=== PATIENT | female | born 1970 | race Caucasian/White ===

== ENCOUNTER → 2022-02-07 | Outpatient (REF) | payer OTHER ==
[2022-02-07 19:29] LABS: FREE T4 0.94 NG/DL (0.76-1.46); THYROID STIMULATING HORMONE 5.14 uIU/ML (0.358-3.740)
== END ==
LOC: M SFHCADAM 11:59
PROVIDERS: ATTEND Family Medicine
DX: L30.9 Dermatitis, unspecified (principal)

== ENCOUNTER → 2022-03-22 | Outpatient (CLI) | payer OTHER ==
[2022-03-22 16:36] LABS: BASO % 0.8 % (0.0-1.0); EOS % 0.8 % (0.0-3.0); HEMATOCRIT 40.1 % (36.0-47.0); HEMOGLOBIN 13.8 g/dl (12.0-15.5); LYMPH # 1.7 10^3/uL (1.5-5.0); LYMPH % 34.1 % (24.0-44.0); MEAN CORPUSCULAR HEMOGLOBIN 32.4 pg (27.0-33.0); MEAN CORPUSCULAR HGB CONC 34.4 g/dl (32.0-36.5); MEAN CORPUSCULAR VOLUME 94.1 fl (80.0-96.0); MONO # 0.4 10^3/uL (0.0-0.8); MONO % 7.1 % (2.0-8.0); NEUTROPHILS # 2.8 10^3/uL (1.5-8.5); PLATELET COUNT, AUTOMATED 261 10^3/uL (150-450); RED BLOOD COUNT 4.26 10^6/uL (4.00-5.40); WHITE BLOOD COUNT 4.9 10^3/uL (4.0-10.0)
[2022-03-22 16:58] LABS: HEMOGLOBIN A1c 5.2 %
[2022-03-22 17:20] LABS: ALBUMIN 4.2 GM/DL (3.2-5.2); ALT/SGPT 24 U/L (12-78); BILIRUBIN,TOTAL 1.4 MG/DL (0.2-1.0); BLOOD UREA NITROGEN 13 MG/DL (7-18); CALCIUM LEVEL 9.6 MG/DL (8.5-10.1); CARBON DIOXIDE LEVEL 29 MEQ/L (21-32); CHLORIDE LEVEL 106 MEQ/L (98-107); CHOLESTEROL LEVEL 186 MG/DL (<200); CREATININE FOR GFR 1.01 MG/DL (0.55-1.30); FREE T3 2.9 PG/ML (2.2-4.0); FREE T4 0.88 NG/DL (0.76-1.46); GLOMERULAR FILTRATION RATE > 60.0 (>51); GLUCOSE, FASTING 84 MG/DL (70-100); HDL CHOLESTEROL 62 MG/DL (>40); LDL CHOLESTEROL 109 MG/DL (<100); MAGNESIUM LEVEL 2.2 MG/DL (1.8-2.4); NON-HDL-C 124 MG/DL; POTASSIUM SERUM 3.9 MEQ/L (3.5-5.1); SODIUM LEVEL 142 MEQ/L (136-145); THYROGLOBULIN ANTIBODY < 15.0 U/ML (<60.0); THYROXINE (T4) 7.9 UG/DL (4.5-12.0); TOTAL 25(OH) VITAMIN D 35.6 NG/ML (30.0-100.0); TOTAL PROTEIN 7.9 GM/DL (6.4-8.2); TOTAL T3 95.4 NG/DL (60.0-181.0); TRIGLYCERIDES LEVEL 77 MG/DL (<150)
[2022-03-22 17:25] LABS: THYROID PEROXIDASE ANTIBODY 41.8 U/ML (<60.0)
[2022-03-22 17:39] LABS: ERYTHROCYTE SEDIMENTATION RATE 9 mm/hr (0-30)
== END ==
LOC: M WUC 13:54
DX: R53.83 Other fatigue (principal); E03.9 Hypothyroidism, unspecified; E78.5 Hyperlipidemia, unspecified; R73.9 Hyperglycemia, unspecified; E55.9 Vitamin D deficiency, unspecified; M25.552 Pain in left hip; M53.3 Sacrococcygeal disorders, not elsewhere classified

== ENCOUNTER → 2022-06-11 | Outpatient (REF) | payer OTHER ==
[2022-06-11 13:42] LABS: CHOLESTEROL RISK RATIO 2.72 (<5); FREE T3 2.7 PG/ML (2.2-4.0); FREE T4 0.98 NG/DL (0.76-1.46); THYROID STIMULATING HORMONE 4.88 uIU/ML (0.358-3.740); THYROXINE (T4) 7.8 UG/DL (4.5-12.0)
== END ==
LOC: M LABWUC 12:16
DX: E03.9 Hypothyroidism, unspecified (principal)